=== PATIENT | female | born 1970 | race Caucasian/White ===

== ENCOUNTER 2019-12-16 11:51 | Outpatient (NON) | payer OTHER, SELFPAY ==
[2019-12-17 14:31] LABS: SARS-CoV-2 RNA PCR Negative
== END 2019-12-16 11:52 ==
PROVIDERS: PCP Family Medicine Adolescent Medicine; Visit Provider Physician Assistant
DX: R05 Cough (principal); R06.02 Shortness of breath; Z20.828 Contact with and (suspected) exposure to other viral communicable diseases
CPT/HCPCS: 87635; C9803; U0003

== ENCOUNTER 2023-09-28 07:00 | Outpatient (NON) | payer OTHER, SELFPAY | END 2023-09-28 07:01 | disposition home or self-care (01) | PROVIDERS: PCP Family Medicine Adolescent Medicine; Visit Provider Family Medicine Adolescent Medicine | DX: Z12.11 Encounter for screening for malignant neoplasm of colon (principal); D12.5 Benign neoplasm of sigmoid colon | CPT/HCPCS: 88305 ==

== ENCOUNTER 2023-09-28 07:37 | Day surgery (SDC) | payer OTHER, SELFPAY ==
--- NOTE | 2023-09-27 11:26 | WPDANESEPPF ---
Anes - Initial Pre Proc Eval Procedure: Operation Date: 09/28/23 09:30 Proposed Procedures p Colonoscopy - Lokesh Lorenz MD Date/Time: 09/27/23 11:26 Surgeon: Lokesh Lorenz MD Pre Op Diagnosis: Neoplasm screening Patient Data Age: 53 Gender: F Height: 1.68 m Weight: 66.678 kg Allergies Allergy/AdvReac Type Severity Reaction Status Date / Time atorvastatin AdvReac Severe Muscle Pain Verified 09/12/23 11:37 Home Medications Medication Instructions Recorded Confirmed Type aspirin 81 mg tablet,delayed 81 mg PO DAILY 09/07/23 09/12/23 History release (Adult Aspirin Regimen) benzonatate 200 mg capsule 200 mg PO TID PRN cough #30 caps 09/07/23 09/12/23 Rx black cohosh 200 mg capsule 200 mg PO DAILY 09/07/23 09/12/23 History codeine 10 mg-guaifenesin 200 mg/5 10 ml PO Q6H #473 mL 09/07/23 09/12/23 Rx mL oral liquid ezetimibe 10 mg tablet 10 mg PO DAILY #90 tabs 09/07/23 09/12/23 Rx nicotine 21 mg/24 hr daily 1 patch transdermal DAILY 7 weeks 09/07/23 09/12/23 Rx transdermal patch (Nicoderm CQ) #42 ea sodium,potassium,mag sulfates 17.5 See Rx Instructions PO .COMPLEX 09/12/23 09/12/23 Rx gram-3.13 gram-1.6 gram oral soln #354 mL (Suprep Bowel Prep Kit) Patient hx anesthesia problems: none Family hx anesthesia problems: none Results Review: All pre-operative results and documents have been reviewed as part of the pre-operative evaluation. [facility] Surgical History Surgical History History of bilateral tubal ligation 2004 History of right-sided carotid endarterectomy History of tonsillectomy and adenoidectomy Child Social History Social History Smoking packs per day: 1 Smoking cigarettes per day: 20.0 Years smoked: 30 Smoking pack-years: 30.00 Smoking status: Current every day smoker Tobacco type: cigarettes Alcohol intake: current Alcohol use details: 2-3 beers daily Substance use: never Substance use type: does not use Living arrangements: with family Dora Engel Final PreProcedure Day of Procedure 09/27/23 11:26 Patient weight: normal Heart: regular rate and rhythm Lungs: decreased breath sounds Airway: Mallampati scale class II Neurological: alert and oriented Last oral intake: >/= 8 hours ASA classification: III Emergent: no Anesthetic plan: proceed Anesthesia type and monitoring: general GIVS and standard monitoring Results Review: All pre-operative results and documents have been reviewed as part of the pre-operative evaluation. Informed Consent: The patient's anesthetic plan and its attendant risks and benefits were discussed with the patient/family/POA. Questions were solicited and answers provided to the satisfaction of the patient/family/POA.
[2023-09-28 08:25] VITALS: BP 133/70; PULSE 82; RESP 20; TEMP 36.9; O2SAT 99
[2023-09-28] MEDS: LACTATED RINGERS 1,000 ML 150 ML IV CONT (08:48)
--- NOTE | 2023-09-28 09:04 | PM.HPGS ---
History of Present Illness History of Present Illness Consent: Risks, benefits, and alternatives have been discussed and questions answered. Patient agrees to proceed with procedure. Chief complaint: Neoplasm screening Narrative: Jeaneth Arias is a 53 year old female presents for screening colonoscopy. Patient reports that her current weight appetite and bowel movements are normal. Patient denies abdominal pain. She has had no bleeding. Family history is significant that her mother had colon polyps. Review of Systems Review of Systems: Review Systems is noncontributory. [facility] Surgical History Surgical History History of bilateral tubal ligation 2004 History of right-sided carotid endarterectomy History of tonsillectomy and adenoidectomy Child Social History Social History Smoking packs per day: 1 Smoking cigarettes per day: 20.0 Years smoked: 30 Smoking pack-years: 30.00 Smoking status: Current every day smoker Tobacco type: cigarettes Alcohol intake: current Alcohol use details: 2-3 beers daily Substance use: never Substance use type: does not use Living arrangements: with family Meds Home Medications and Allergies Home Medications Medication Instructions Recorded Confirmed Type aspirin 81 mg tablet,delayed 81 mg PO DAILY 09/07/23 09/28/23 History release (Adult Aspirin Regimen) benzonatate 200 mg capsule 200 mg PO TID PRN cough #30 caps 09/07/23 09/28/23 Rx black cohosh 200 mg capsule 200 mg PO DAILY 09/07/23 09/28/23 History codeine 10 mg-guaifenesin 200 mg/5 10 ml PO Q6H #473 mL 09/07/23 09/28/23 Rx mL oral liquid ezetimibe 10 mg tablet 10 mg PO DAILY #90 tabs 09/07/23 09/28/23 Rx nicotine 21 mg/24 hr daily 1 patch transdermal DAILY 7 weeks 09/07/23 09/28/23 Rx transdermal patch (Nicoderm CQ) #42 ea sodium,potassium,mag sulfates 17.5 See Rx Instructions PO .COMPLEX 09/12/23 09/28/23 Rx gram-3.13 gram-1.6 gram oral soln #354 mL (Suprep Bowel Prep Kit) Allergies Allergy/AdvReac Type Severity Reaction Status Date / Time atorvastatin AdvReac Severe Muscle Pain Verified 09/28/23 08:42 Vital Signs Vital Signs - 24 hr 09/28/23 08:25 Temperature 98.5 F Pulse Rate 82 Respiratory Rate 20 Blood Pressure 133/70 Pulse Oximetry 99 Oxygen Delivery Room Air Exam Narrative: Physical exam reveals patient to be alert. Signs stable. HEENT exam is unremarkable. Patient is anicteric. Lungs are clear to auscultation and to percussion. Heart is without murmur or extra sounds. Abdomen bowel sounds are present soft nontender with no organomegaly. Digital external rectal exam is normal. Assessment and Plan Assessment and plan (1) Colon cancer screening: Code(s): Z12.11 - Encounter for screening for malignant neoplasm of colon Status: Acute Assessment and Plan: Presents for colon cancer screening. She does have a family history of colon polyps in her mother. Further recommendation after endoscopy.
[2023-09-28 09:54] VITALS: BP 117/57; PULSE 82; RESP 16; O2SAT 92
[2023-09-28 10:04] VITALS: BP 142/56; PULSE 89; RESP 20; O2SAT 100
--- NOTE | 2023-09-28 10:11 | WPDANESPN ---
Anes - Prog Note Post-Op Date/Time: 09/28/23 10:11 Cardiovascular status: normal Respiratory status: normal Airway patency: baseline Mental status: baseline Post-Op hydration status: normal Vital Signs: Last Vital Signs Temp 36.9 C 09/28/23 08:25 Pulse 89 09/28/23 10:04 Resp 20 09/28/23 10:04 BP 142/56 H 09/28/23 10:04 Pulse Ox 100 09/28/23 10:04 O2 Del Method Room Air 09/28/23 10:04 Pain Score (VAS): 0 I/O: Intake & Output 09/27/23 09/28/23 09/28/23 23:59 07:59 15:59 Intake Total 600 Balance 600 Patient Feedback: Patient satisfied with anesthetic care.
[2023-09-28 10:14] VITALS: BP 134/69; PULSE 80; RESP 20; O2SAT 100
== END 2023-09-28 10:26 | disposition home or self-care (01) ==
PROVIDERS: PCP Family Medicine Adolescent Medicine; Visit Provider Internal Medicine Gastroenterology
PROC: 0DJD8ZZ Inspection of Lower Intestinal Tract, Via Natural or Artificial Opening Endoscopic (ICD-10-PCS; CPT 45378; principal; 2023-09-28 09:30)
DX: Z83.718 Family history of other colon polyps (principal); D12.5 Benign neoplasm of sigmoid colon; K64.8 Other hemorrhoids
CPT/HCPCS: 45385